=== PATIENT | male | born 1970 | race African-American/Black ===

== ENCOUNTER 2022-02-16 12:38 | Emergency (ER) | payer OTHER, SELFPAY ==
[2022-02-16 12:50] VITALS: BP 135/88; PULSE 72; RESP 18; TEMP 36.5; O2SAT 98
--- NOTE | 2022-02-16 13:05 | ED.SKABFB ---
HPI - Skin/Abscess/Foreign Bdy General Chief complaint: Eye Problems Stated complaint: Eye Pain Time Seen by Provider: 02/16/22 13:06 Source: patient Mode of arrival: ambulatory Limitations: no limitations History of Present Illness HPI narrative: 51 yo M presents with c/o redness, swelling to eyelids this AM. has had poison holly to neck and arms for 3 to 4 days. Not using any OTC medications. Poison holly rash started after doing yardwork. Is concerned rash has spread to eyelids. no vision changes, drainge, eye irritaiton. All systems reviewed and negative except as noted above. Related Data Allergies Allergy/AdvReac Type Severity Reaction Status Date / Time No Known Allergies Allergy Verified 02/16/22 13:04 Review of Systems Review of Systems: CONSTITUTIONAL: Denies fever, chills, or sweats. EYES: Denies visual changes, redness, or discharge. ENT: Denies rhinorrhea, congestion, sore throat, or otalgia. CARDIOVASCULAR: Denies chest pain, palpitations, or edema. RESPIRATORY: Denies cough or dyspnea. GASTROINTESTINAL: Denies abdominal pain, nausea, vomiting, or diarrhea. GENITOURINARY: Denies dysuria or hematuria. SKIN: Reports rash and itching. MUSCULOSKELETAL: Denies back pain, joint pain, or myalgia. NEUROLOGIC: Denies headache, numbness, or weakness. PSYCHIATRIC: Denies anxiety or depression. All other systems reviewed are negative, except as documented in HPI. PMFSH Comments At time of signature, agree with nursing past medical, surgical, social and family history. There is no relevant family history pertinent to the presenting complaint. Exam Narrative: GENERAL: This is a well-nourished, well-developed patient, in no apparent distress. HEAD: normocephalic, atraumatic. EYES: PERRL. Sclera clear/white. Vision is grossly intact. EARS: External ears normal NOSE: External nose normal NECK: Neck supple, non-tender without lymphadenopathy, masses or thyromegaly. CARDIOVASCULAR: Regular rate and rhythm without murmurs, gallops, or rubs. RESPIRATORY: Clear to auscultation. Breath sounds equal bilaterally. No wheezes, rales, or rhonchi. SKIN: warm, Dry, intact with no suspicious lesions, good texture and turgor. Erythema and slight swelling to pulse but there is forearms, anterior aspect. Also to right side of neck. There is erythema and swelling surrounding eyes. No drainage. NEURO: awake, alert, and oriented to person, place and time. There were no obvious focal neurologic abnormalities. EXTREMITIES: No joint tenderness, effusion, or edema noted. Course Course Level of Care: Express Care Visit Vital Signs Vital signs: Vital Signs Temperature 36.5 C 02/16/22 12:50 Pulse Rate 72 02/16/22 12:50 Respiratory Rate 18 02/16/22 12:50 Blood Pressure 135/88 02/16/22 12:50 Pulse Oximetry 98 02/16/22 12:50 Oxygen Delivery Room Air 02/16/22 12:50 Temperature 36.5 C 02/16/22 12:50 Pulse Rate 72 02/16/22 12:50 Respiratory Rate 18 02/16/22 12:50 Blood Pressure 135/88 02/16/22 12:50 Pulse Oximetry 98 02/16/22 12:50 Oxygen Delivery Room Air 02/16/22 12:50 Reviewed MDM - Skin/Abscess/Foreign Bdy MDM Narrative Medical decision making narrative: Patient is aware of diagnosis, understands and agrees to treatment plan. Anticipatory guidance given. Patient agrees to follow-up as directed and is aware of reasons to seek care at the emergency department. Portions of this record may have been created with voice recognition software Differential Diagnosis Differential diagnosis: Likely eczema and contact dermatitis Discharge Plan Discharge Clinical Impression: Dermatitis due to plants, including poison holly, sumac, and oak Patient Disposition: Home, Self-Care Condition: Stable Instructions: Poison Holly (ED) Additional Instructions: Take medications as prescribed. Do not apply steroid cream to face. Avoid scratches to prevent infection. Follow up with your doctor i
== END 2022-02-16 13:15 | disposition home or self-care (01) ==
PROVIDERS: Emergency Provider Nurse Practitioner Family
DX: L25.5 Unspecified contact dermatitis due to plants, except food (principal)
CPT/HCPCS: 99203; G0463